=== PATIENT | male | born 1970 | race Caucasian/White ===

== ENCOUNTER 2021-12-22 15:50 | Emergency (ER) | payer OTHER ==
[2021-12-22] MEDS ORDERED: Sodium Chloride 0.9% 1000 ML 1,000 ML IV SCH (16:00)
[2021-12-22 16:02] VITALS: O2SAT 97
[2021-12-22 16:28] LABS: Absolute Neutrophil Ct (ANC) 8.03 x10^3/uL (1.4-6.9); Basophil (Absolute #) 0.05 x10^3/uL (0-0.4); Eosinophil % 0.3 % (0.00-5.0); Eosinophil (Absolute #) 0.03 x10^3/uL (0-0.5); Hematocrit 46.5 % (42-50); Hemoglobin 15.8 g/dL (12.5-18.0); Lymphocytes % 12.7 % (24.0-44.0); Mean Cell Volume 85.3 fL (78-100); Monocyte (Absolute #) 0.78 x10^3/uL (0.0-1.3); Monocytes % 7.6 % (0.0-12.0); Neutrophil % 78.5 % (36.0-66.0); Platelet Count 236 x10^3/uL (150-450); Red Blood Count 5.45 x10^6/uL (4.1-5.6); Red Cell Distribution Width 12.6 % (11.5-14.0); White Blood Count 10.2 x10^3/uL (4.0-10.5)
--- NOTE | 2021-12-22 16:45 | ERPHSYRPT ---
- History of Present Illness Time Seen by Provider: 12/22/21 16:00 Source: patient, other Exam Limitations: no limitations Patient Subjective Stated Complaint: PT TO ER WITH COMPLAINTS OF SYNCOPAL EPISODE TODAY AFTER MOWING. PT ALSO HAD SOME CHEST PAIN FOR A FEW MINUTES WHEN HE WAS DRIVING HOME. PT STATES HE HAS BEEN UNDER SOME STRESS. Triage Nursing Assessment: PT TO ER VIA EMS FOR SYNCOPAL EPISODE TODAY AFTER MOWING. PT STATES HE WAS TALKING TO CUSTOMER AND BLACKED OUT AND HIT HIS HEAD ON THE CONCRETE. PT HAS SMALL ABRAISON ABOVE LEFT EYE. PT APPEARS IN NO DISTRESS. Physician History: Patient is a 51-year-old male presents to emergency department for evaluation of syncope. 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 Patient hit his head on a concrete walkway. Patient later drove home and developed left-sided chest pain. Patient then decided come to our ED. Patient arrived via EMS. No active chest pain. Symptoms were resolved at the time of arrival. Symptoms when present were moderate in intensity. No specific worsening improving factors. Patient denies a history of syncope. Patient believes he is otherwise healthy but has not been followed up by primary care doctor in a number of years. Patient voices no other complaints or concerns at this time. Portions of this note were created with voice recognition technology. There may be grammatical, spelling, punctuation or sound alike errors Timing/Duration: today Severity: moderate Modifying Factors: Improves With: nothing Associated Symptoms: denies symptoms Allergies/Adverse Reactions: No Known Drug Allergies Allergy (Unverified 12/22/21 16:06) Home Medications: Famotidine 20 mg [Pepcid 20 MG] 1 tab PO DAILY 12/22/21 [History] Hx Tetanus, Diphtheria Vaccination/Date Given: No Hx Influenza Vaccination/Date Given: No Hx Pneumococcal Vaccination/Date Given: No Immunizations Up to Date: Yes Travel Risk - International Travel Have you traveled outside of the country in past 3 weeks: No - Coronavirus Screening Are you exhibiting any of the following symptoms?: No Close contact with a COVID-19 positive Pt in past 14-21 Days: No - Vaccine Status Have you recieved a Covid-19 vaccination: No - Review of Systems Constitutional: No Symptoms, No Fever, No Chills Eyes: No Symptoms Ears, Nose, & Throat: No Symptoms Respiratory: No Symptoms, No Cough, No Dyspnea Cardiac: No Symptoms, No Chest Pain, No Edema, No Syncope Abdominal/Gastrointestinal: No Symptoms, No Abdominal Pain, No Nausea, No Vomiting, No Diarrhea Genitourinary Symptoms: No Symptoms, No Dysuria Musculoskeletal: No Symptoms, No Back Pain, No Neck Pain Skin: No Symptoms, No Rash Neurological: No Symptoms, No Dizziness, No Focal Weakness, No Sensory Changes Psychological: No Symptoms Endocrine: No Symptoms Hematologic/Lymphatic: No Symptoms Immunological/Allergic: No Symptoms All Other Systems: Reviewed and Negative - Past Medical History Pertinent Past Medical History: No - Past Surgical History Past Surgical History: Yes Neuro Surgical History: No Pertinent History Cardiac: No Pertinent History Respiratory: No Pertinent History Gastrointestinal: No Pertinent History Genitourinary: No Pertinent History Musculoskeletal: No Pertinent History Male Surgical History: No Pertinent History - Social History Smoking Status: Never smoker Exposure to second hand smoke: No Drug Use: none Patient Lives Alone: No - Nursing Vital Signs Nursing Vital Signs: Initial Vital Signs Temperature 98 F 12/22/21 15:51 Pulse Rate 83 12/22/21 15:51 Respiratory Rate 12 12/22/21 15:51 Blood Pressure 185/111 12/22/21 15:51 O2 Sat by Pulse Oximetry 98 12/22/21 15:51 Pain Scale Pain Intensity 0 - Physical Exam General Appearance: no apparent distress, alert Eye Exam: PERRL/EOMI, eyes nml inspection Ears, Nose, Throat Exam: normal ENT inspection, TMs normal, pharynx normal, moist mucous membranes Neck Exam: normal inspection, non-tender, supple, full range of motion Respiratory Exam: normal breath sounds, lungs clear, No respiratory distress Cardiovascular Exam: regular rate/rhythm, normal heart sounds, normal peripheral pulses Gastrointestinal/Abdomen Exam: soft, normal bowel sounds, No tenderness, No mass Back Exam: normal inspection, normal range of motion, No CVA tenderness, No vertebral tenderness Extremity Exam: normal inspection, normal range of motion, pelvis stable Neurologic Exam: alert, oriented x 3, cooperative, normal mood/affect, nml cerebellar function, nml station & gait, sensation nml, No motor deficits Skin Exam: normal color, warm, dry, other (Superficial 2 cm x 1 cm skin abrasion over the left eye), No rash Lymphatic Exam: No adenopathy SpO2: 97 - Course Nursing assessment & vital signs reviewed: Yes EKG Interpreted by Me: RATE (85), Sinus Rhythm, NORMAL AXIS, NORMAL INTERVALS - CT Exams Head CT Interpretation: Tele-radiologist Report (Near complete opacification of right maxillary sinus, left maxillary polyp/retention cyst) Ordered Tests: Active Orders 24 hr Category Date Time Status Sound Ranging Crewmember STAT Care 12/22/21 15:59 Active EKG-ER Only STAT Care 12/22/21 15:59 Active IV Insertion STAT Care 12/22/21 15:59 Active Pulse Oximetry (ED) STAT Care 12/22/21 15:59 Active CHEST 1 VIEW (PORTABLE) Stat Exams 12/22/21 16:45 Completed HEAD WITHOUT CONTRAST [CT] Stat Exams 12/22/21 16:34 Completed CBC W DIFF Stat Lab 12/22/21 16:21 Completed CMP Stat Lab 12/22/21 16:21 Completed ETHYL ALCOHOL Stat Lab 12/22/21 16:21 Completed NT PRO BNP Stat Lab 12/22/21 16:21 Completed TROPONIN Q4H Lab 12/22/21 16:21 Completed TROPONIN Q4H Lab 12/22/21 20:00 Ordered TROPONIN Q4H Lab 12/23/21 00:00 Ordered UA W/RFX CULTURE Stat Lab 12/22/21 16:45 Completed Urine Triage Profile Stat Lab 12/22/21 16:45 Completed Medication Summary Generic Name Dose Route Start Last Admin Trade Name Freq PRN Reason Stop Dose Admin Sodium Chloride 1,000 mls @ 100 mls/hr 12/22/21 16:00 12/22/21 16:16 Sodium Chloride 0.9% 1000 Ml IV 01/21/22 15:59 Not Given .Q10H BRENT Magnesium Sulfate/Dextrose 100 mls @ 100 mls/hr 12/22/21 17:30 12/22/21 17:44 Magnesium 1 Gm / 100 Ml D5w IV 12/22/21 19:29 100 mls/hr Q1H BRENT Administration Discontinued Medications Generic Name Dose Route Start Last Admin Trade Name Freq PRN Reason Stop Dose Admin Potassium Chloride 40 meq 12/22/21 17:18 12/22/21 17:43 Potassium Chloride Tab 10 Meq Tab PO 12/22/21 17:19 40 meq STAT ONE Administration Potassium Chloride Confirm 12/22/21 17:41 Potassium Chloride Tab 10 Meq Tab Administered 12/22/21 17:42 Dose 40 meq PO .Edyn-MED ONE Lab/Rad Data: Laboratory Result Diagrams 12/22/21 16:21 12/22/21 16:21 Laboratory Results 12/22/21 12/22/21 12/22/21 Range/Units 16:45 16:45 16:21 WBC (4.0-10.5) x10^3/uL RBC (4.1-5.6) x10^6/uL Hgb (12.5-18.0) g/dL Hct (42-50) % MCV (78-100) fL MCH (26-32) pg MCHC (32-36) g/dL RDW (11.5-14.0) % Plt Count (150-450) x10^3/uL MPV (7.5-11.0) fL Gran % (36.0-66.0) % Immature Gran % (Auto) (0.00-0.4) % Nucleat RBC Rel Count (0.00-0.1) % Eos # (Auto) (0-0.5) x10^3/uL Immature Gran # (Auto) (0.00-0.03) x10^3u/L Absolute Lymphs (auto) (1.0-4.6) x10^3/uL Absolute Monos (auto) (0.0-1.3) x10^3/uL Absolute Nucleated RBC (0.00-0.01) x10^3u/L Lymphocytes % (24.0-44.0) % Monocytes % (0.0-12.0) % Eosinophils % (0.00-5.0) % Basophils % (0.0-0.4) % Absolute Granulocytes (1.4-6.9) x10^3/uL Basophils # (0-0.4) x10^3/uL Sodium (137-145) mmol/L Potassium (3.5-5.1) mmol/L Chloride (98-107) mmol/L Carbon Dioxide (22-30) mmol/L Anion Gap (5-15) MEQ/L BUN (9-20) mg/dL Creatinine (0.66-1.25) mg/dL Estimated GFR ML/MIN Glucose (74-106) mg/dL Calcium (8.4-10.2) mg/dL Total Bilirubin (0.2-1.3) mg/dL AST (17-59) U/L ALT (0-50) U/L Alkaline Phosphatase (38-126) U/L Troponin I < 0.012 (0.000-0.034) ng/mL NT-Pro-B Natriuret Pep (0-900) pg/mL Serum Total Protein (6.3-8.2) g/dL Albumin (3.5-5.0) g/dL Urinalys Dipstick Clnc MAIN LAB Urine Color YELLOW (YELLOW) Urine Appearance CLEAR (CLEAR) Urine pH 5.5 (5-6) Ur Specific [place] >=1.030 (1.005-1.025) POC Urine Protein Conf 30 (Negative) Urine Ketones NEGATIVE (NEGATIVE) Urine Nitrite NEGATIVE (NEGATIVE) Urine Bilirubin NEGATIVE (NEGATIVE) Urine Urobilinogen 0.2 (0-1) mg/dL Urine Leukocytes SMALL (NEGATIVE) Urine WBC (Auto) 0-2 (0-5) /HPF Urine RBC (Auto) NONE (0-2) /HPF U Hyaline Cast (Auto) 0-2 (0-2) /LPF U Epithel Cells (Auto) NONE (FEW) /HPF Urine Bacteria (Auto) NONE (NEGATIVE) /HPF Urine RBC NEGATIVE (0-5) Collins/ul Urine Mucus (Auto) SLIGHT (NEGATIVE) /HPF Ur Culture Indicated? NO Urine Glucose 250 (NEGATIVE) mg/dL Urine Opiates Level NEGATIVE (NEGATIVE) Ur Methadone NEGATIVE (NEGATIVE) Urine Barbiturates NEGATIVE (NEGATIVE) Ur Phencyclidine (PCP) NEGATIVE (NEGATIVE) Urine Amphetamine NEGATIVE (NEGATIVE) U Benzodiazepine Level NEGATIVE (NEGATIVE) Urine Cocaine NEGATIVE (NEGATIVE) Urine Marijuana (THC) NEGATIVE (NEGATIVE) Ethyl Alcohol (0-10) mg/dL 12/22/21 12/22/21 Range/Units 16:21 16:21 WBC 10.2 (4.0-10.5) x10^3/uL RBC 5.45 (4.1-5.6) x10^6/uL Hgb 15.8 (12.5-18.0) g/dL Hct 46.5 (42-50) % MCV 85.3 (78-100) fL MCH 29.0 (26-32) pg MCHC 34.0 (32-36) g/dL RDW 12.6 (11.5-14.0) % Plt Count 236 (150-450) x10^3/uL MPV 10.0 (7.5-11.0) fL Gran % 78.5 H (36.0-66.0) % Immature Gran % (Auto) 0.4 (0.00-0.4) % Nucleat RBC Rel Count 0.0 (0.00-0.1) % Eos # (Auto) 0.03 (0-0.5) x10^3/uL Immature Gran # (Auto) 0.04 H (0.00-0.03) x10^3u/L Absolute Lymphs (auto) 1.30 (1.0-4.6) x10^3/uL Absolute Monos (auto) 0.78 (0.0-1.3) x10^3/uL Absolute Nucleated RBC 0.00 (0.00-0.01) x10^3u/L Lymphocytes % 12.7 L (24.0-44.0) % Monocytes % 7.6 (0.0-12.0) % Eosinophils % 0.3 (0.00-5.0) % Basophils % 0.5 (0.0-0.4) % Absolute Granulocytes 8.03 H (1.4-6.9) x10^3/uL Basophils # 0.05 (0-0.4) x10^3/uL Sodium 141 (137-145) mmol/L Potassium 3.4 L (3.5-5.1) mmol/L Chloride 103 (98-107) mmol/L Carbon Dioxide 25 (22-30) mmol/L Anion Gap 16.1 H (5-15) MEQ/L BUN 15 (9-20) mg/dL Creatinine 1.05 (0.66-1.25) mg/dL Estimated GFR > 60.0 ML/MIN Glucose 130 H (74-106) mg/dL Calcium 9.6 (8.4-10.2) mg/dL Total Bilirubin 0.70 (0.2-1.3) mg/dL AST 26 (17-59) U/L ALT 28 (0-50) U/L Alkaline Phosphatase 52 (38-126) U/L Troponin I (0.000-0.034) ng/mL NT-Pro-B Natriuret Pep 32.2 (0-900) pg/mL Serum Total Protein 8.0 (6.3-8.2) g/dL Albumin 4.8 (3.5-5.0) g/dL Urinalys Dipstick Clnc Urine Color (YELLOW) Urine Appearance (CLEAR) Urine pH (5-6) Ur Specific [place] (1.005-1.025) POC Urine Protein Conf (Negative) Urine Ketones (NEGATIVE) Urine Nitrite (NEGATIVE) Urine Bilirubin (NEGATIVE) Urine Urobilinogen (0-1) mg/dL Urine Leukocytes (NEGATIVE) Urine WBC (Auto) (0-5) /HPF Urine RBC (Auto) (0-2) /HPF U Hyaline Cast (Auto) (0-2) /LPF U Epithel Cells (Auto) (FEW) /HPF Urine Bacteria (Auto) (NEGATIVE) /HPF Urine RBC (0-5) Collins/ul Urine Mucus (Auto) (NEGATIVE) /HPF Ur Culture Indicated? Urine Glucose (NEGATIVE) mg/dL Urine Opiates Level (NEGATIVE) Ur Methadone (NEGATIVE) Urine Barbiturates (NEGATIVE) Ur Phencyclidine (PCP) (NEGATIVE) Urine Amphetamine (NEGATIVE) U Benzodiazepine Level (NEGATIVE) Urine Cocaine (NEGATIVE) Urine Marijuana (THC) (NEGATIVE) Ethyl Alcohol < 10 (0-10) mg/dL - Progress Progress: improved Progress Note: Patient reassessed. He remains asymptomatic. Potassium 3.4. Potassium repla sunil orally. Magnesium replaced as well. CT head shows near complete opacification of the right maxillary sinus also shows a left maxillary retention cyst versus polyp. In light of patient's syncope and chest pain we advised admission. Patient refused. Patient is of sound mind. Patient is appropriate to make informed and independent medical decisions. Patient understands that leaving AGAINST MEDICAL ADVICE can result in delayed diagnosis, increased risk of morbidity, mortality, short and long-term disability including . In spite of these risks, patient has decided to leave AGAINST MEDICAL ADVICE. Patient understands that he may return to our ED at any point if he reconsiders. Patient agrees to follow-up with his primary care doctor within 48 hours for reevaluation. Patient voices no other complaints or concerns at this time. We will release patient AGAINST MEDICAL ADVICE per their request. Portions of this note were created with voice recognition technology. There may be grammatical, spelling, punctuation or sound alike errors 12/22/21 17:50 Counseled pt/family regarding: lab results, diagnosis, rad results - Departure Departure Disposition: AMA Clinical Impression: Hypokalemia, Syncope and collapse, Chest pain, ACS (acute coronary syndrome), Glucosuria, Microscopic hematuria, Sinus disease, Left maxillary polyp/retention cyst, Abrasion of eyebrow Condition: Stable Critical Care Time: No Referrals: ROSA JOHN [Primary Care Provider] - Follow up/PCP as directed Additional Instructions: Discharge/Care Plan RAVEN FAJARDO was seen on 12/22/21 in the Emergency Room. The patient was counseled regarding Diagnosis,Lab results, Imaging studies, need for follow up and when to return to the Emergency Room. Prescriptions given: Discharge Note I have spoken with the patient and/or caregivers. I have explained the patient's condition, diagnosis and treatment plan based on the information available to me at this time. I have answered the patient's and/or caregiver's questions and addressed any concerns. The patient and/or caregivers have as good understanding of the patient's diagnosis, condition and treatment plan as can be expected at t his point. The vital signs have been stable. The patient's condition is stable and appropriate for discharge from the emergency department. The patient will pursue further outpatient evaluation with the primary care physician or other designated or consulting physician as outlined in the discharge instructions. The patient and/or caregivers are agreeable to this plan of care and follow-up instructions have been explained in detail. The patient and/or caregivers have received these instruction. The patient/and or caregivers are aware that any significant change in condition or worsening of symptoms should prompt an immediate return to this or the closest emergency department or call 911.
[2021-12-22 16:49] LABS: ALBUMIN 4.8 g/dL (3.5-5.0); ALKALINE PHOSPHATASE 52 U/L (38-126); ANION GAP 16.1 MEQ/L (5-15); BLOOD UREA NITROGEN 15 mg/dL (9-20); CHLORIDE 103 mmol/L (98-107); Calcium 9.6 mg/dL (8.4-10.2); Carbon Dioxide 25 mmol/L (22-30); Creatinine 1 1.05 mg/dL (0.66-1.25); EST GLOMERULAR FILTRATION RATE > 60.0 ML/MIN; ETHYL ALCOHOL < 10 mg/dL (0-10); Glucose 130 mg/dL (74-106); NT PRO BNP 32.2 pg/mL (0-900); Potassium 3.4 mmol/L (3.5-5.1); SGOT/AST 26 U/L (17-59); SGPT/ALT 28 U/L (0-50); SODIUM 141 mmol/L (137-145)
--- NOTE | 2021-12-22 16:56 | XRAY ---
Indication: Chest pain. Comparison: None Portable chest demonstrates normal heart and lungs. Bony thorax intact with mild degenerative changes.
--- NOTE | 2021-12-22 16:58 | XRAY ---
Indication: Left frontal head injury following fall. Loss of consciousness. Elevated blood sugar. Multiple contiguous axial images obtained through the head without contrast. Comparison: None Normal appearing brain parenchyma, ventricles, and bony calvarium. Near complete opacification right maxillary sinus and subcentimeter left maxillary sinus polyp/retention cyst. Mastoid air cells clear. Impression: Normal CT head without contrast exam. Incidental right maxillary sinus disease and left maxillary sinus polyp/retention cyst.
[2021-12-22 17:05] LABS: Appearance CLEAR (CLEAR); Bilirubin NEGATIVE (NEGATIVE); Glucose 250 mg/dL (NEGATIVE); Hyaline Casts 0-2 /LPF (0-2); Mucus SLIGHT /HPF (NEGATIVE); WBC 0-2 /HPF (0-5)
[2021-12-22 17:06] LABS: Dipstick done @ ? MAIN LAB; Ketones NEGATIVE (NEGATIVE); Nitrite NEGATIVE (NEGATIVE); Ph 5.5 (5-6); Protein,Urine Dip 30 (Negative); RBC NEGATIVE Ery/ul (0-5); Specific Gravity >=1.030 (1.005-1.025); Urobilinogen 0.2 mg/dL (0-1)
[2021-12-22 17:07] LABS: Urine Cultured Indicated? NO
[2021-12-22 17:16] LABS: Amphetamine,Urine NEGATIVE (NEGATIVE); Barbiturate,Urine NEGATIVE (NEGATIVE); Benzodiazepine,Urine NEGATIVE (NEGATIVE); Cocaine,Urine NEGATIVE (NEGATIVE); Methadone,Urine NEGATIVE (NEGATIVE); Opiate,Urine NEGATIVE (NEGATIVE); PCP,Urine NEGATIVE (NEGATIVE); THC,Urine NEGATIVE (NEGATIVE)
[2021-12-22] MEDS ORDERED: Klor Con PO ONE ×2 (17:18→17:41)
[2021-12-22] MEDS ORDERED: Magnesium 1 Gm / 100 Ml D5W*** 100 ML IV ONE ×2 (17:41→18:21)
[2021-12-22] MEDS: Magnesium 1 Gm / 100 Ml D5W*** 100 ML IV SCH ×2 (17:44→18:22)
[2021-12-22 18:32] LABS: INFLUENZA A NEGATIVE (NEGATIVE); INFLUENZA B NEGATIVE (NEGATIVE); RESPIRATORY SYNCTIAL VIRUS NEGATIVE (Negative); SARS-CoV-2 Xpert Express NEGATIVE (NEGATIVE)
[2021-12-22 19:15] VITALS: BP 144/80; PULSE 86
== END 2021-12-22 19:06 | disposition left against medical advice (07) ==
LOC: ED 15:50
DX: I24.9 Acute ischemic heart disease, unspecified (principal); E87.6 Hypokalemia; R55 Syncope and collapse; R07.9 Chest pain, unspecified; R81 Glycosuria; R31.29 Other microscopic hematuria; J32.9 Chronic sinusitis, unspecified; J34.1 Cyst and mucocele of nose and nasal sinus; S00.212A Abrasion of left eyelid and periocular area, initial encounter; W18.39XA Other fall on same level, initial encounter; Z28.310 Unvaccinated for COVID-19
CPT/HCPCS: 0241U; 36415; 70450; 71045; 80053; 80307; 81015; 83880; 84484; 85025; 93005; 93041; 94760; 99284; J3475; A9270-GY; G0480